=== PATIENT | female | born 1945 | race Caucasian/White ===

== ENCOUNTER 2022-07-09 08:21 | Day surgery (SDC) | payer MEDICARE, BC ==
[~2022-07-09 08:21] MED LIST: Propofol 200 MG/20 ML SDV ONE
[2022-07-09] MEDS ORDERED: Lactated Ringers 1,000 ML IV SCH (09:45)
== END 2022-07-09 10:30 | disposition home or self-care (01) ==
LOC: MW.SDS 08:21
PROVIDERS: ATTEND Surgery
DX: D12.3 Benign neoplasm of transverse colon (principal); F17.210 Nicotine dependence, cigarettes, uncomplicated; Z79.899 Other long term (current) drug therapy; Z98.890 Other specified postprocedural states
CPT/HCPCS: 45380; J2704; J7120